=== PATIENT | male | born 1940 | race Caucasian/White ===

== ENCOUNTER → 2016-08-26 | Outpatient (CLI) | payer MEDICARE, OTHER | LOC: LAB.O 11:22 | PROVIDERS: ATTEND Internal Medicine Medical Oncology | DX: E83.118 Other hemochromatosis (principal) ==

== ENCOUNTER → 2016-12-26 | Outpatient (CLI) | payer MEDICARE, OTHER | END | disposition home or self-care (01) | LOC: LAB.O 13:27 | PROVIDERS: ATTEND Internal Medicine Medical Oncology | DX: E83.110 Hereditary hemochromatosis (principal) ==

== ENCOUNTER → 2016-12-27 | Outpatient (CLI) | payer MEDICARE, OTHER | LOC: GMAB 10:35 | PROVIDERS: ATTEND Family Medicine | DX: I10 Essential (primary) hypertension (principal); Z12.5 Encounter for screening for malignant neoplasm of prostate | CPT/HCPCS: 84443; G0103 ==

== ENCOUNTER → 2017-07-26 | Outpatient (CLI) | payer MEDICARE, OTHER | END | disposition home or self-care (01) | LOC: GMAB 15:18 | PROVIDERS: ATTEND Family Medicine | DX: R20.8 Other disturbances of skin sensation (principal); I10 Essential (primary) hypertension ==

== ENCOUNTER → 2017-08-04 | Outpatient (CLI) | payer MEDICARE, OTHER ==
--- NOTE | 2017-08-04 12:52 | MRI ---
EXAM DESCRIPTION: Brain w/oContrast CLINICAL HISTORY: 77 years,Male,DISTURBANCES OF SKIN SENSATION COMPARISON: None TECHNIQUE: MRI performed multiple sequences of the brain without contrast. FINDINGS: There is no abnormal extra-axial fluid collection. No mass effect. Rogers-white matter differentiation severe increased T2 signal change in the periventricular white matter especially the posterior aspects. Sulcation and ventricles are age appropriate. No mass effect. Diffusion demonstrates no acute findings. The included paranasal sinuses demonstrate a large fluidlike signal which appears be expansile in the left frontal sinuses measuring 2.7 x 1.7 cm in axial plane by 3.2 in height and extends into the frontal recess. There is a second one below this in the left which also is expansile in the nasal passages measuring approximately 3.2 AP by 1.7W by 3. For centimeters in height. The mastoid air cells are unremarkable. IMPRESSION: Severe periventricular chronic ischemic changes. No acute findings. Large expansile smooth fluidlike density seen in the left frontal sinus and left nasal passages which appears to be more of a foreign body rather than a mucous retention cyst. Electronically signed by: Jaspal Aviles MD 08/04/2017 12:51 PM [facility] [[email or web address]]
--- NOTE | 2017-08-04 12:56 | US ---
EXAM DESCRIPTION: Carotid Duplex CLINICAL HISTORY: 77 years,Male,DISTURBANCES OF SKIN SENSATION COMPARISON: None TECHNIQUE: Multiple real-time duplex Doppler ultrasound images were obtained the carotid arteries. FINDINGS: The right carotid system demonstrates moderate intimal thickening. The common carotid artery demonstrates no significant stenosis. The ICA demonstrates a small mostly soft tissue plaque in the proximal ICA resulting in about a 20% diameter reduction. The left carotid system demonstrates moderate intimal thickening. The common carotid artery demonstrates normal plaque at the bulb of less than 10% stenosis. The internal carotid artery demonstrates no significant stenosis. The right carotid system demonstrates unremarkable waveforms. The right vertebral artery demonstrates antegrade flow. The left carotid system demonstrates unremarkable waveforms. The left vertebral artery demonstrates antegrade flow. On the right, the velocity in the distal common carotid artery is 67 cm/sec. The distal internal carotid artery is 56 cm/sec. The ICA/CCA ratio is 0.8. On the left, the velocity in the proximal common carotid artery is 82 cm/sec. The mid internal carotid artery is 62 cm/sec. The ICA/CCA ratio is 0.7. IMPRESSION: Mild plaque about 20% stenosis of the right proximal internal carotid artery and about 10% in the left bulb but no hemodynamic significant stenosis. Electronically signed by: Jaspal Aviles MD 08/04/2017 12:55 PM [employer]
== END | disposition home or self-care (01) ==
LOC: MRI 09:44
PROVIDERS: ATTEND Family Medicine
DX: R20.8 Other disturbances of skin sensation (principal); R09.89 Other specified symptoms and signs involving the circulatory and respiratory systems

== ENCOUNTER → 2017-08-25 | Outpatient (CLI) | payer MEDICARE, OTHER | END | disposition home or self-care (01) | LOC: LAB.O 10:02 | PROVIDERS: ATTEND Internal Medicine Medical Oncology | DX: E83.110 Hereditary hemochromatosis (principal) ==

== ENCOUNTER → 2017-08-30 | Outpatient (CLI) | payer MEDICARE, OTHER | LOC: LAB.O 15:02 | PROVIDERS: ATTEND Internal Medicine Medical Oncology | DX: D50.9 Iron deficiency anemia, unspecified (principal) ==

== ENCOUNTER → 2018-02-15 | Outpatient (CLI) | payer MEDICARE, OTHER | LOC: GMAE 10:58 | PROVIDERS: ATTEND Family Medicine | DX: E53.8 Deficiency of other specified B group vitamins (principal); I10 Essential (primary) hypertension ==

== ENCOUNTER → 2018-02-26 | Outpatient (CLI) | payer MEDICARE, OTHER | LOC: GMAE 14:58 | PROVIDERS: ATTEND Family Medicine | DX: D53.9 Nutritional anemia, unspecified (principal) ==

== ENCOUNTER → 2018-05-25 | Outpatient (CLI) | payer MEDICARE, OTHER | LOC: LAB.O 14:31 | PROVIDERS: ATTEND Internal Medicine Medical Oncology | DX: D50.9 Iron deficiency anemia, unspecified (principal) ==

== ENCOUNTER → 2018-06-13 | Outpatient (CLI) | payer MEDICARE, OTHER | LOC: LAB.NP 14:39 | PROVIDERS: ATTEND Internal Medicine Medical Oncology | DX: E83.118 Other hemochromatosis (principal) ==

== ENCOUNTER → 2018-07-10 | Outpatient (CLI) | payer MEDICARE, OTHER | LOC: LAB.O 13:04 | PROVIDERS: ATTEND Internal Medicine Medical Oncology | DX: E83.118 Other hemochromatosis (principal) ==

== ENCOUNTER → 2018-08-14 | Outpatient (CLI) | payer MEDICARE, OTHER | LOC: LAB.O 12:40 | PROVIDERS: ATTEND Internal Medicine Medical Oncology | DX: E83.118 Other hemochromatosis (principal) ==

== ENCOUNTER → 2018-08-20 | Outpatient (CLI) | payer MEDICARE, OTHER | LOC: GMAE 14:16 | PROVIDERS: ATTEND Family Medicine | DX: E83.118 Other hemochromatosis (principal) ==

== ENCOUNTER → 2018-11-28 | Outpatient (CLI) | payer MEDICARE, OTHER | LOC: LAB.O 11:38 | PROVIDERS: ATTEND Internal Medicine Medical Oncology | DX: E83.110 Hereditary hemochromatosis (principal) ==

== ENCOUNTER → 2019-02-25 | Outpatient (CLI) | payer MEDICARE, OTHER | LOC: GMAE 10:46 | PROVIDERS: ATTEND Family Medicine | DX: I10 Essential (primary) hypertension (principal); E53.8 Deficiency of other specified B group vitamins; E11.40 Type 2 diabetes mellitus with diabetic neuropathy, unspecified; R94.6 Abnormal results of thyroid function studies ==

== ENCOUNTER → 2020-03-12 | Outpatient (CLI) | payer MEDICARE, OTHER | LOC: GMAE 10:13 | PROVIDERS: ATTEND Family Medicine | DX: E53.8 Deficiency of other specified B group vitamins (principal); D50.9 Iron deficiency anemia, unspecified; Z12.5 Encounter for screening for malignant neoplasm of prostate; R94.6 Abnormal results of thyroid function studies; I10 Essential (primary) hypertension; E11.40 Type 2 diabetes mellitus with diabetic neuropathy, unspecified | CPT/HCPCS: 82607; 82728; 82746; 83540; 83550; 84443; G0103 ==

== ENCOUNTER → 2020-05-18 | Outpatient (CLI) | payer MEDICARE, OTHER | LOC: GMAL 14:28 | PROVIDERS: ATTEND Family Medicine | DX: E83.119 Hemochromatosis, unspecified (principal) ==